=== PATIENT | male | born 1960 | race Caucasian/White ===

== ENCOUNTER 2017-01-21 10:55 | Emergency (ER) | payer OTHER ==
[~2017-01-21] VITALS: Ht 182.9 cm; Wt 104.3 kg
[~2017-01-21 10:55] MED LIST: HYDROCODON-ACE1 EA12 PO; IBUPROFEN 200200 M1 PO; MOBIC; OMEPRAZOLE20 M2 PO; PERCOCET 5-3251 EACH PO; TRICOR48 MG PO; ZOCOR PO
[2017-01-21 13:42] LABS: ABSOLUTE NEUTROPHILS 6.7 thou/uL (1.4-8.2); BASOPHILS 0.8 % (0.0-2.0); EOSINOPHILS 1.4 % (0.0-3.0); HEMATOCRIT 42.1 % (42.0-52.0); HEMOGLOBIN 14.4 gm/dL (14.0-18.0); LYMPHOCYTES 17.6 % (24.0-44.0); MCH 28.2 pg (26.0-34.0); MCHC 34.3 g/dL (28.0-37.0); MCV 82.4 fL (80.0-100.0); MONOCYTES 6.3 % (1.0-8.0); PLATELET COUNT 142 thou/uL (150-400); POLYS 73.9 % (36.0-66.0); RBC 5.11 mil/uL (4.50-6.00); RDW 14.1 % (10.5-14.5); WBC 9.1 thou/uL (4.0-11.0)
[2017-01-21 13:44] LABS: MANUAL DIFF NO
[2017-01-21 13:47] LABS: CREATININE 1.1 mg/dL (0.7-1.3); POTASSIUM 3.9 mmol/L (3.5-5.1)
[2017-01-21] MEDS ORDERED: BACTRIM DS TAB1 EACH PO (14:24)
[2017-01-21 14:33] VITALS: BP 152/89
== END 2017-01-21 14:33 | disposition home or self-care (01) ==
LOC: ER 10:55
PROVIDERS: Emergency Medicine
DX: L03.116 Cellulitis of left lower limb (principal); K21.9 Gastro-esophageal reflux disease without esophagitis; E78.00 Pure hypercholesterolemia, unspecified; F10.99 Alcohol use, unspecified with unspecified alcohol-induced disorder